=== PATIENT | male | born 1945 | race Caucasian/White ===

== ENCOUNTER 2023-08-14 03:02 | Observation (INO) | payer MEDICARE ==
[~2023-08-14] VITALS: Ht 180.3 cm; Wt 86.7 kg
[~2023-08-14 03:02] MED LIST: ACET325 PO; OMEP20ER PO
[2023-08-14] MEDS ORDERED: Prinivil10 MG PO ×2 (03:18)
[2023-08-14] MEDS ORDERED: DOCCAL240 PO (03:19)
[2023-08-14] MEDS ORDERED: ACET325 PO ×2 (03:19)
[2023-08-14] MEDS ORDERED: OXYC5 PO ×2 (03:19)
[2023-08-14] MEDS ORDERED: ONDA4 PO ×2 (03:19)
[2023-08-14 05:41] LABS: BASOPHILS ABSOLUTE AUTO 0.05 K/mm3 (0.00-0.23); BASOPHILS PERCENT AUTO 0 % (0-2); EOSINOPHILS ABSOLUTE AUTO 0.02 K/mm3 (0.00-0.68); EOSINOPHILS PERCENT AUTO 0 % (0-6); Hematocrit 36.3 % (37.0-53.0); Hemoglobin 12.5 g/dL (13.5-17.5); IMMATURE GRAN ABSOLUTE AUTO 0.05 K/mm3 (0.00-0.10); IMMATURE GRAN PERCENT AUTO 0 % (0-1); LYMPHOCYTES ABSOLUTE AUTO 0.61 K/mm3 (0.84-5.20); LYMPHOCYTES PERCENT AUTO 5 % (21-46); MONOCYTES ABSOLUTE AUTO 1.67 K/mm3 (0.16-1.47); MONOCYTES PERCENT AUTO 13 % (4-13); Mean Corpuscular HGB 30.3 pg (26.0-34.0); Mean Corpuscular HGB Conc 34.4 g/dL (31.5-36.5); Mean Corpuscular Volume 88 fL (80-100); Mean Platelet Volume 11.6 fL (9.1-12.4); NEUTROPHILS ABSOLUTE AUTO 10.85 K/mm3 (1.96-9.15); NEUTROPHILS PERCENT AUTO 82 % (41-73); Platelet Count 209 K/mm3 (150-400); RDW Coefficient Variation 11.8 % (11.7-14.2); RDW Standard Deviation 37.6 fL (35.1-46.3); Red Blood Cell Count 4.12 M/mm3 (4.30-5.90); White Blood Cell Count 13.25 K/mm3 (4.00-11.30)
[2023-08-14 05:54] LABS: Albumin, Blood 2.6 g/dL (3.4-5.0); Albumin/Globulin Ratio 0.8 (0.8-1.8); Bilirubin, Total 0.8 mg/dL (0.1-1.0); Bun/Creatinine Ratio 16.2 (12.0-20.0); Calcium, Blood 8.1 mg/dL (8.5-10.1); Creatinine, Blood 0.99 mg/dL (0.60-1.20); Globulin, Blood 3.3 g/dL (2.2-4.0); Magnesium, Blood 1.9 mg/dL (1.6-2.4); Phosphorus, Blood 2.6 mg/dL (2.5-4.9); Potassium, Blood 4.2 mmol/L (3.5-5.5); Total Protein, Blood 5.9 g/dL (6.4-8.2)
[2023-08-14 10:57] VITALS: BP 138/64
[2023-08-14] MEDS ORDERED: Robaxin750 MG PO ×2 (11:48)
[2023-08-14] MEDS ORDERED: Colace100 MG PO ×2 (11:48)
--- NOTE | 2023-08-14 12:00 | NUR ---
PT ARRIVED TO ROOM 363 WIV W/C FROM ED AND HOBBLED TO BED. REPORTS USING A FWW SINCE R KNEE REPLACEMENT ON THURSDAY. REQUESTING ICE FOR R KNEE. STATES NAUSEA ALRIGHT AT THIS TIME BUT HAS HAD HICCUPS SINCE ARRIVAL TO FLOOR. AT BEDSIDE. ORIENTED TO ROOM ON ARRIVAL.
[2023-08-14] MEDS ORDERED: ELIQUIS2.5 MG PO ×2 (12:47)
--- NOTE | 2023-08-14 17:33 | NUR ---
SHIFT SUMMARY PT DOZING ON AND OFF THROUGH THE REMAINDER OF THE SHIFT WITH FAMILY IN AND OUT OF ROOM. OCCASIONAL EPISODES OF NAUSEA. HAD AN ICE CHIP AND STATED HE FELT MORE NAUSEATED AFTER. MEDICATED FOR HICCUPS WITH REGLAN WHEN THEY APPEARED TO INCREASE IN FREQUENCY. REMINDED PT TO MOVE HIS R KNEE TO KEEP MOBILITY AND ASK FOR PAIN MEDS IF TOO PAINFUL TO MOVE. ICE APPLIED FOR COMFORT TO R KNEE. DRESSING INTACT TO INCISION WITH SWELLING NOTED.
--- NOTE | 2023-08-14 18:43 | NUR ---
"Spiritual Care | Pt. Request Pt. is awake in bed and welcomes my visit. Spouse is present. It is near the end of shift, so the visit is kept brief. Established rapport. Pt. displays evidence of being miserable. Listen with empathy and a calming present prayed with the Pt. and . Both verbalized gratitude for the spiritual care visit."
[2023-08-14 20:25] VITALS: BP 135/75
--- NOTE | 2023-08-15 04:50 | NUR ---
SHIFT SUMMARY PT IS A&O4, PT HASNT GOTTEN UP SINCE ADMIN DUE TO PAIN, USING URINAL, RA, VSS, PRN REGLEN GIVEN X1 PER MAR FOR NAUSEA AND HICCUPS, NO ACUTE OVERNIGHT EVENTS CONTINUE POC
[2023-08-15 05:11] LABS: BASOPHILS ABSOLUTE AUTO 0.06 K/mm3 (0.00-0.23); BASOPHILS PERCENT AUTO 1 % (0-2); EOSINOPHILS PERCENT AUTO 5 % (0-6); Hematocrit 33.4 % (37.0-53.0); Hemoglobin 11.6 g/dL (13.5-17.5); IMMATURE GRAN ABSOLUTE AUTO 0.04 K/mm3 (0.00-0.10); IMMATURE GRAN PERCENT AUTO 0 % (0-1); LYMPHOCYTES ABSOLUTE AUTO 1.04 K/mm3 (0.84-5.20); LYMPHOCYTES PERCENT AUTO 12 % (21-46); MONOCYTES ABSOLUTE AUTO 1.21 K/mm3 (0.16-1.47); MONOCYTES PERCENT AUTO 14 % (4-13); Mean Corpuscular HGB 30.1 pg (26.0-34.0); Mean Corpuscular HGB Conc 34.7 g/dL (31.5-36.5); Mean Corpuscular Volume 87 fL (80-100); NEUTROPHILS ABSOLUTE AUTO 6.18 K/mm3 (1.96-9.15); NEUTROPHILS PERCENT AUTO 69 % (41-73); Platelet Count 218 K/mm3 (150-400); RDW Coefficient Variation 11.8 % (11.7-14.2); RDW Standard Deviation 37.3 fL (35.1-46.3); Red Blood Cell Count 3.86 M/mm3 (4.30-5.90); White Blood Cell Count 8.93 K/mm3 (4.00-11.30)
[2023-08-15 05:41] LABS: Albumin, Blood 2.4 g/dL (3.4-5.0); Albumin/Globulin Ratio 0.8 (0.8-1.8); Bilirubin, Total 0.7 mg/dL (0.1-1.0); Bun/Creatinine Ratio 11.8 (12.0-20.0); Calcium, Blood 8.1 mg/dL (8.5-10.1); Creatinine, Blood 0.76 mg/dL (0.60-1.20); Globulin, Blood 3.1 g/dL (2.2-4.0); Magnesium, Blood 2.1 mg/dL (1.6-2.4); Potassium, Blood 3.4 mmol/L (3.5-5.5); Total Protein, Blood 5.5 g/dL (6.4-8.2)
[2023-08-15 07:32] VITALS: BP 146/78
[2023-08-15 14:59] VITALS: BP 141/86
--- NOTE | 2023-08-15 16:16 | NUR ---
SHIFT SUMMARY PATIENT STATED HE WOULD LIKE TO TRY THE SHIFT WITH NO MEDS, UNABLE TO DO THIS. REQUIRED NAUSEA MEDS X2, DOC CHANGED MEDS FOR BETTER NAUSEA CONTROL. CONTACTED DR VINCENT FOR CHANGE IN ROUTE FOR POTASSIUM REPLACEMENT AND FOR ADDITION OF PPI. PATIENT'S INCISION TO RIGHT KNEE HAS SURGICAL DRESSING IN PLACE, NO APPARENT SIGNS OF INFECTION. NO PAIN MEDS ACCEPTED THIS SHIFT, ICE IN PLACE FOR PAIN CONTROL. ABLE TO AMBULATE IN ROOM WITH ONE ASSIST. WILL CONTINUE TO MONITOR.
--- NOTE | 2023-08-15 16:24 | NUR ---
PHYSICIAN CONTACT PHARMACY NOTED THAT EPHEDRINE CANNOT BE GIVEN ON MEDICAL FLOOR, CONTACTED DR VINCENT FOR ORDERS. STATED TO DC THAT ORDER AND GIVE AN ADDITIONAL 5MG OF REGLAN NOW, START 10MG DOSING TONIGHT AND IF SYMPTOMS DON'T IMPROVE MAYBE TRANSFER TO ICU FOR MANAGEMENT.
[2023-08-15 20:50] VITALS: BP 136/65
[2023-08-16 02:42] VITALS: BP 150/89
[2023-08-16 04:58] LABS: BASOPHILS ABSOLUTE AUTO 0.04 K/mm3 (0.00-0.23); BASOPHILS PERCENT AUTO 1 % (0-2); EOSINOPHILS ABSOLUTE AUTO 0.37 K/mm3 (0.00-0.68); EOSINOPHILS PERCENT AUTO 6 % (0-6); Hematocrit 33.5 % (37.0-53.0); Hemoglobin 11.5 g/dL (13.5-17.5); IMMATURE GRAN ABSOLUTE AUTO 0.03 K/mm3 (0.00-0.10); IMMATURE GRAN PERCENT AUTO 0 % (0-1); LYMPHOCYTES ABSOLUTE AUTO 0.85 K/mm3 (0.84-5.20); LYMPHOCYTES PERCENT AUTO 13 % (21-46); MONOCYTES ABSOLUTE AUTO 0.94 K/mm3 (0.16-1.47); MONOCYTES PERCENT AUTO 14 % (4-13); Mean Corpuscular HGB Conc 34.3 g/dL (31.5-36.5); Mean Corpuscular Volume 88 fL (80-100); Mean Platelet Volume 10.5 fL (9.1-12.4); NEUTROPHILS ABSOLUTE AUTO 4.53 K/mm3 (1.96-9.15); NEUTROPHILS PERCENT AUTO 67 % (41-73); Platelet Count 237 K/mm3 (150-400); RDW Coefficient Variation 11.8 % (11.7-14.2); RDW Standard Deviation 37.6 fL (35.1-46.3); Red Blood Cell Count 3.83 M/mm3 (4.30-5.90); White Blood Cell Count 6.76 K/mm3 (4.00-11.30)
[2023-08-16 05:50] LABS: Albumin, Blood 2.4 g/dL (3.4-5.0); Albumin/Globulin Ratio 0.7 (0.8-1.8); Bilirubin, Total 0.7 mg/dL (0.1-1.0); Bun/Creatinine Ratio 15.4 (12.0-20.0); Calcium, Blood 8.2 mg/dL (8.5-10.1); Creatinine, Blood 0.78 mg/dL (0.60-1.20); Globulin, Blood 3.3 g/dL (2.2-4.0); Magnesium, Blood 2.2 mg/dL (1.6-2.4); Potassium, Blood 3.8 mmol/L (3.5-5.5); Total Protein, Blood 5.7 g/dL (6.4-8.2)
[2023-08-16 07:10] VITALS: BP 153/76
--- NOTE | 2023-08-16 07:39 | NUR ---
END OF SHIFT SUMMARY PT A&O x4. VSS, AFEBRILE. UNEVENTFUL NIGHT, PT SLEPT ON AND OFF. PT CALM AND COOPERATIVE WITH CARE PROVIDED. NO C/O PAIN/DISCOMFORT. PT DENIED NAUSEA. HICCUPS ON AND OFF THROUGHOUT THE SHIFT. PT RECEIVED IV POTASSIUM. PT'S LAST POTASSIUM LEVEL WAS 3.8 ON 08/16/23. PT 1P SBA TO RESTROOM FOR SAFETY. ICE PACKS PROVIDED FOR PT'S R KNEE. DRESSING CLEAN/DRY/INTACT. NO S/SX OF INFECTION NOTED. PT ABLE TO MAKE NEEDS KNOWN, CALL LIGHT WITHIN REACH, WCTM.
[2023-08-16] MEDS ORDERED: Methocarbamol500 MG PO ×2 (15:42)
[2023-08-16] MEDS ORDERED: METO10 PO ×2 (15:43)
--- NOTE | 2023-08-16 17:14 | NUR ---
DISCHARGE SUMMARY PATIENT DISCHARGE PACKET GIVEN, REVIEWED AND QUESTIONS ANSWERED, VERBALIZED UNDERSTANDING AND ABLE TO TEACHBACK. IV REMOVED PRIOR, NO COMPLICATIONS. SURGICAL SITE INTACT ON DISCHARGE WITH ORIGINAL DRESSING IN PLACE. TO DRIVE HOME. WILL CONTINUE TO MONITOR
== END 2023-08-16 16:19 | disposition home or self-care (01) ==
LOC: ER 03:02 → MEDS 03:03
PROVIDERS: Emergency Medicine; ADMIT Internal Medicine
DX: R06.6 Hiccough (principal); E87.1 Hypo-osmolality and hyponatremia; E87.6 Hypokalemia; D64.9 Anemia, unspecified; E78.5 Hyperlipidemia, unspecified; K21.9 Gastro-esophageal reflux disease without esophagitis
CPT/HCPCS: 36415; 80053; 83735; 84100; 84484; 85025; 93005; 93010; 96361; 96365; 96372; 96375; 96376; 97110; 97161; 97530; 99285-25; C9113; G0378; J1650; J2270; J2405; J2765; J3230; J3480; J7030; J7042; J7050

== ENCOUNTER → 2023-08-30 | Outpatient (CLI) | payer MEDICARE ==
[~2023-08-30] MED LIST changes: +Colace100 MG PO; +DOCCAL240 PO; +ELIQUIS2.5 MG PO; +METO10 PO; +Methocarbamol500 MG PO; +ONDA4 PO; +OXYC5 PO; +Prinivil10 MG PO; +Robaxin750 MG PO
[2023-08-30 15:39] LABS: BASOPHILS ABSOLUTE AUTO 0.09 K/mm3 (0.00-0.23); BASOPHILS PERCENT AUTO 1 % (0-2); EOSINOPHILS ABSOLUTE AUTO 0.19 K/mm3 (0.00-0.68); EOSINOPHILS PERCENT AUTO 2 % (0-6); Hematocrit 44.7 % (37.0-53.0); Hemoglobin 14.8 g/dL (13.5-17.5); IMMATURE GRAN ABSOLUTE AUTO 0.04 K/mm3 (0.00-0.10); IMMATURE GRAN PERCENT AUTO 0 % (0-1); LYMPHOCYTES ABSOLUTE AUTO 1.56 K/mm3 (0.84-5.20); LYMPHOCYTES PERCENT AUTO 14 % (21-46); MONOCYTES ABSOLUTE AUTO 0.81 K/mm3 (0.16-1.47); MONOCYTES PERCENT AUTO 7 % (4-13); Mean Corpuscular HGB 29.8 pg (26.0-34.0); Mean Corpuscular HGB Conc 33.1 g/dL (31.5-36.5); Mean Corpuscular Volume 90 fL (80-100); Mean Platelet Volume 9.8 fL (9.1-12.4); NEUTROPHILS ABSOLUTE AUTO 8.71 K/mm3 (1.96-9.15); NEUTROPHILS PERCENT AUTO 76 % (41-73); Platelet Count 493 K/mm3 (150-400); RDW Coefficient Variation 12.4 % (11.7-14.2); RDW Standard Deviation 40.4 fL (35.1-46.3); Red Blood Cell Count 4.96 M/mm3 (4.30-5.90)
[2023-08-30 15:57] LABS: Albumin, Blood 3.6 g/dL (3.4-5.0); Albumin/Globulin Ratio 0.9 (0.8-1.8); Bilirubin, Total 0.5 mg/dL (0.1-1.0); Calcium, Blood 9.5 mg/dL (8.5-10.1); Creatinine, Blood 1.12 mg/dL (0.60-1.20); Globulin, Blood 3.8 g/dL (2.2-4.0); Potassium, Blood 4.3 mmol/L (3.5-5.5); Total Protein, Blood 7.4 g/dL (6.4-8.2)
== END ==
LOC: LAB 15:34 → LAB SHORT 15:34
PROVIDERS: Family Medicine
DX: E86.0 Dehydration (principal)
CPT/HCPCS: 80053; 85025